=== PATIENT | female | born 1995 | race Hispanic/Latino ===

== ENCOUNTER 2016-08-11 12:34 | Outpatient (CLI) | payer OTHER ==
[2016-08-11 13:07] LABS: #Basophils 0.1 thou/uL (0.0-0.2); #Eosinphils 0.1 thou/uL (0.0-0.7); #Lymphocytes 1.7 thou/uL (1.20-3.40); #Monocytes 0.7 thou/uL (0.11-0.59); #Neutrophils 5.6 thou/uL (1.40-6.50); %Basophils 0.8 % (0.0-1.0); %Eosinophils 0.9 % (0.0-10.0); %Lymphocytes 21.1 % (21.0-51.0); %Monocytes 8.5 % (0.0-10.0); %Neutrophils 68.8 % (42.0-75.0); Hemoglobin 12.1 g/dL (12.0-16.0); Mean Corpuscular HGB CONC 33.5 g/dL (32.0-36.0); Mean Corpuscular Hemoglobin 29.6 pg (27.0-31.0); Mean Corpuscular Volume 88.2 fl (81.0-99.0); Mean Platelet Volume 6.4 fL (7.4-10.4); Platelet Count 361 thou/uL (130-400); RBC Distribution Width 12.4 % (11.5-14.5); Red Blood Cell (RBC) Count 4.09 mill/uL (4.20-5.40); White Blood Cell (WBC) Count 8.1 thou/uL (4.8-10.8)
[2016-08-11 13:13] LABS: Amphetamine Not Detected (NotDetected); Barbiturates Screen Not Detected (NotDetected); Benzodiazepine Screen Not Detected (NotDetected); Cocaine Metabolite Screen Not Detected (NotDetected); Medtox Control Line Valid? VALID (VALID); Methadone Not Detected (NotDetected); Methamphetamine Not Detected (NotDetected); Opiate Screen Not Detected (NotDetected); Oxycodone Screen Not Detected (NotDetected); Phencyclidine (PCP) Not Detected (NotDetected); THC/Cannabinoid Screen Not Detected (NotDetected); Tricyclic Screen Not Detected (NotDetected)
[2016-08-11 17:28] LABS: Hep B Surf Ag Non-Reactive S/CO (NonReactive)
[2016-08-11 17:29] LABS: HBSAg Index 0.23 S/CO (0-0.99); HIV (1/2) Antibody/Antigen Non-Reactive (NonReactive)
[2016-08-12 18:01] LABS: Chlamydia by PCR Not Detected (NotDetected); GC by PCR Not Detected (NotDetected)
[2016-08-15 10:20] LABS: Rubella Virus IgG 1.51 index (Immune >0.99)
[2016-08-15 23:15] LABS: AFP MoM 0.57 (.); Alpha-Fetoprotein 17.7 ng/mL (.); DSR by Age 1 in 1124 (.); Down Syndrome Risk 2nd Tri 2549 (.); Gest Age on Coll Date 15.2 WEEKS (.); HCG MoM 0.74 (.); Inhibin A 286.53 pg/mL (.); Inhibin A MoM 1.39 (.); Insulin Dep Diabetes? No (.); Maternal Age at EDD 22.2 YEARS (.); Method of Estimation As provided (.); Multiple Gestation No (.); OSB Risk 10000 (.); Race Other (.); T18 Risk Not increased (.); Test Results: *Screen Negative* (.); UE3 0.81 ng/mL (.); UE3 MoM 1.14 (.); Weight 129 lbs (.)
== END 2016-08-11 12:35 | disposition home or self-care (01) ==
LOC: MADLABBHPM 12:34
PROVIDERS: ATTEND Family Medicine
DX: Z34.02 Encounter for supervision of normal first pregnancy, second trimester (principal)
CPT/HCPCS: 36415; 80081; 80306; 82105; 82677; 84702; 85660; 86336; 87077; 87086; 87186; 87491; 87591

== ENCOUNTER 2016-11-13 09:16 | Outpatient (CLI) | payer OTHER ==
[2016-11-13 11:26] LABS: #Basophils 0.1 thou/uL (0.0-0.2); #Lymphocytes 1.8 thou/uL (1.20-3.40); #Monocytes 0.9 thou/uL (0.11-0.59); #Neutrophils 8.6 thou/uL (1.40-6.50); %Basophils 1.1 % (0.0-1.0); %Eosinophils 0.4 % (0.0-10.0); %Lymphocytes 15.9 % (21.0-51.0); %Monocytes 7.4 % (0.0-10.0); %Neutrophils 75.2 % (42.0-75.0); Hemoglobin 10.6 g/dL (12.0-16.0); Mean Corpuscular HGB CONC 35.4 g/dL (32.0-36.0); Mean Corpuscular Hemoglobin 32.5 pg (27.0-31.0); Mean Corpuscular Volume 91.9 fl (81.0-99.0); Mean Platelet Volume 6.2 fL (7.4-10.4); Platelet Count 362 thou/uL (130-400); RBC Distribution Width 12.6 % (11.5-14.5); Red Blood Cell (RBC) Count 3.26 mill/uL (4.20-5.40); White Blood Cell (WBC) Count 11.4 thou/uL (4.8-10.8)
[2016-11-13 17:40] LABS: HIV (1/2) Antibody/Antigen Non-Reactive (NonReactive); HIV 1/2 INDEX 0.11 S/CO (<1.00)
== END 2016-11-13 09:17 ==
LOC: MADLABBHPM 09:16
PROVIDERS: ATTEND Family Medicine
DX: K21.9 Gastro-esophageal reflux disease without esophagitis (principal)
CPT/HCPCS: 36415; 82950; 85025; 86592; 87389

== ENCOUNTER 2016-12-29 16:35 | Outpatient (CLI) | payer OTHER | END 2016-12-29 16:36 | disposition home or self-care (01) | LOC: MADLABBHPM 16:35 | PROVIDERS: ATTEND Family Medicine | DX: Z34.03 Encounter for supervision of normal first pregnancy, third trimester (principal) | CPT/HCPCS: 87081 ==

== ENCOUNTER 2017-06-05 00:47 | Emergency (ER) | payer OTHER, SELFPAY ==
[2017-06-05] MEDS ORDERED: Ondansetron ODT 4 MG TAB ONE (01:05)
[2017-06-05] MEDS ORDERED: Pantoprazole 40 MG VIAL ONE (01:08)
[2017-06-05] MEDS ORDERED: Ketorolac Tromethamine 30 MG/ML VIAL ONE (01:15)
[2017-06-05 01:57] LABS: #Basophils 0.1 thou/uL (0.0-0.2); #Eosinphils 0.2 thou/uL (0.0-0.7); #Lymphocytes 4.5 thou/uL (1.20-3.40); #Monocytes 1.2 thou/uL (0.11-0.59); #Neutrophils 5.2 thou/uL (1.40-6.50); %Eosinophils 1.7 % (0.0-10.0); %Lymphocytes 40.4 % (21.0-51.0); %Monocytes 10.9 % (0.0-10.0); Hemoglobin 12.5 g/dL (12.0-16.0); Mean Corpuscular HGB CONC 35.1 g/dL (32.0-36.0); Mean Corpuscular Hemoglobin 32.5 pg (27.0-31.0); Mean Corpuscular Volume 92.6 fl (81.0-99.0); Mean Platelet Volume 6.2 fL (7.4-10.4); Platelet Count 377 thou/uL (130-400); RBC Distribution Width 13.2 % (11.5-14.5); Red Blood Cell (RBC) Count 3.86 mill/uL (4.20-5.40); White Blood Cell (WBC) Count 11.3 thou/uL (4.8-10.8)
[2017-06-05 02:05] LABS: ALT (SGPT) 12 U/L (8-55); AST (SGOT) 24 U/L (5-34); Albumin 4.2 g/dL (3.5-5.0); Alkaline Phosphatase 95 U/L (40-150); Anion Gap 15 mmol/L (10-20); BUN (Urea Nitrogen) 12 mg/dL (7.0-18.7); Bilirubin, Total 0.3 mg/dL (0.2-1.2); Calc. Creatinine Clearance 0 mL/min (70-130); Calcium 9.4 mg/dL (7.8-10.44); Carbon Dioxide 23 mmol/L (22-29); Chloride 107 mmol/L (98-107); Estimated GFR-MDRD 88; Globulin 3.6 g/dL (2.4-3.5); Glucose 98 mg/dL (70-105); Lipase 37 U/L (8-78); Potassium 3.1 mmol/L (3.5-5.1); Protein, Total 7.8 g/dL (6.0-8.3); Sodium 142 mmol/L (136-145)
[2017-06-05 02:12] LABS: CKMB 1.1 ng/mL (0-6.6); Troponin I Less than 0.010 ng/mL (< 0.028)
--- NOTE | 2017-06-05 07:44 | RAD ---
ACUTE ABDOMINAL SERIES FRONTAL RADIOGRAPH OF CHEST AND 2 VIEWS OF ABDOMEN: Date: 06/05/17 HISTORY: Abdominal pain and nausea. FINDINGS: There is no pneumothorax or pleural fluid, and no focal consolidation or alveolar edema. Heart and me diastinal contours appear unremarkable. Upright imaging demonstrates no evidence for free intraperito myesha air. The bowel gas pattern appears nonobstructed. IMPRESSION: Unremarkable exam. POS: H
[2017-06-05] MEDS ORDERED: Sodium Chloride 0.9% 1,000 ML BAG ONE (09:14)
== END 2017-06-05 02:30 | disposition home or self-care (01) ==
LOC: MADERS 00:47
DX: R10.13 Epigastric pain (principal)
CPT/HCPCS: 36415; 74022; 80053; 82553; 83605; 83690; 84484; 85025; 85379; 93005; 96361; 96374; 96375; C9113; J1885; J7050; Q0162